=== PATIENT | female | born 1995 | race Caucasian/White ===

== ENCOUNTER 2020-12-25 00:01 | Emergency (ER) | payer MEDICAID ==
[~2020-12-25] VITALS: Ht 162.6 cm; Wt 75.7 kg
--- NOTE | 2020-12-25 00:06 | NUR ---
PT AAOX4. BIBSELF C/O HITTING LEFT SIDE OF HER HEAD ON TILE AFTER DRINKING. PLACED IN BED 2 ON MONITOR AND PULSE OX. NO TRAUMA NOTED. VSS. AWAITING ER MD FOR EVAL AND ORDERS.
[2020-12-25] MEDS ORDERED: ACETAMINOPHEN ES 500 MG TABLET ONE ×2 (00:28→00:29)
[2020-12-25] MEDS ORDERED: ACETAMINOPHEN ES 500 MG TABLET PO ONE (00:30)
--- NOTE | 2020-12-25 00:37 | NUR ---
PT GOING TO CT
--- NOTE | 2020-12-25 00:50 | NUR ---
BROUGHT BACK FROM CT
--- NOTE | 2020-12-25 00:50 | NUR ---
Eliana crowe in [facility] - 12/25/20 at 0050 by PARVEEN BROUGHT BACK FROM CT
[2020-12-25 01:16] VITALS: BP 133/75
--- NOTE | 2020-12-25 01:16 | NUR ---
Patient discharged to home in stable condition. Written and verbal after care instructions given. Patient verbalizes understanding of instruction.
== END 2020-12-25 01:17 | disposition home or self-care (01) ==
LOC: ER 00:05
DX: S40.012A Contusion of left shoulder, initial encounter (principal); F07.81 Postconcussional syndrome; W18.39XA Other fall on same level, initial encounter; Y93.89 Activity, other specified; Y92.89 Other specified places as the place of occurrence of the external cause; Y99.8 Other external cause status
CPT/HCPCS: 70450-TC; 72125-TC; 84703-TC